=== PATIENT | female | born 1995 | race American Indian/Alaskan Native ===

== ENCOUNTER 2016-07-03 16:36 | Emergency (ER) | payer MEDICAID, OTHER ==
[2016-07-03 17:00] VITALS: BP 104/69; PULSE 84; RESP 18; TEMP 98.4; O2SAT 98
== END 2016-07-03 18:22 | disposition left against medical advice (07) ==
LOC: C.ER 16:36
DX: Z32.00 Encounter for pregnancy test, result unknown (principal); Z02.9 Encounter for administrative examinations, unspecified

== ENCOUNTER 2016-07-03 18:36 | Emergency (ER) | payer OTHER ==
[2016-07-03 18:51] VITALS: BMI 21.6
[2016-07-03 18:55] VITALS: BP 111/78; PULSE 78; RESP 18; O2SAT 100
--- NOTE | 2016-07-03 21:05 | C.PDOC ---
History Of Present Illness Patient is a 20 year old female who presents to the ER with a complaint of dizziness, lightheadedness and nausea for the past 4 months. Patient reports she hasn't had her menstrual period for 4 months and believes she is . Patient also notes when she coughs blood appear in her mucous at times. Patient denies fever, numbness, weakness, chest pain, and SOB. Time Seen by Provider: 07/03/16 20:27 Chief Complaint (Nursing): Abdominal Pain History Per: Patient History/Exam Limitations: no limitations Onset/Duration Of Symptoms: Days (4 months) Current Symptoms Are (Timing): Still Present Context: Other (Not known) Radiation Of Pain To:: None Quality Of Discomfort: Other (No pain) Associated Symptoms: Nausea. denies: Fever, Chest Pain, Other (Weakness, numbness, SOB) Exacerbating Factors: None Alleviating Factors: None Recent travel outside of the [place]: No Last Menstral Period: 4 months ago Past Medical History Reviewed: Historical Data, Nursing Documentation, Vital Signs Vital Signs: Last Vital Signs Temp 98 F 07/04/16 00:11 Pulse 78 07/03/16 18:51 Resp 18 07/03/16 18:51 BP 111/78 07/03/16 18:51 Pulse Ox 100 07/03/16 21:15 - Medical History PMH: No Chronic Diseases Surgical History: No Surg Hx Family History: States: Unknown Family Hx - Social History Hx Tobacco Use: No Hx Alcohol Use: No Hx Substance Use: No - Immunization History Hx Tetanus Toxoid Vaccination: No Hx Influenza Vaccination: No Hx Pneumococcal Vaccination: No Review Of Systems Constitutional: Positive for: Other (No night sweats). Negative for: Fever, Weakness, Weight loss Cardiovascular: Negative for: Chest Pain Respiratory: Positive for: Cough (Blood in mucous occasionally). Negative for: Shortness of Breath Gastrointestinal: Positive for: Nausea Neurological: Positive for: Dizziness, Other (Lightheadedness). Negative for: Weakness, Numbness Physical Exam - Physical Exam Appears: Well, Non-toxic Skin: Normal Color, Warm, Dry, No Rash Head: Atraumatic, Normacephalic Eye(s): bilateral: Normal Inspection, PERRL, EOMI Ear(s): Bilateral: Normal Oral Mucosa: Moist Tongue: Normal Appearing Throat: Normal, No Erythema, No Exudate Neck: Normal, Supple Chest: Symmetrical, No Tenderness Cardiovascular: Rhythm Regular, No Friction Rub, No Murmur Respiratory: Normal Breath Sounds, No Rales, No Rhonchi, No Wheezing Gastrointestinal/Abdominal: Soft, No Tenderness Extremity: Normal ROM, No Swelling Neurological/Psych: Oriented x3, Normal Speech, Normal Cognition, Normal Motor Gait: Steady ED Course And Treatment - Laboratory Results Result Diagrams: 07/03/16 20:59 07/03/16 20:59 O2 Sat by Pulse Oximetry: 100 (Room air) Pulse Ox Interpretation: Normal Progress Note: Blood work and urinalysis ordered. Medical Decision Making Medical Decision Making: Lab results were discussed with the patient. Patient eloped prior to the CXR. Disposition - Disposition Disposition: ELOPEMENT - ER ONLY Disposition Time: 22:30 Condition: GOOD - POA Present On Arrival: None - Clinical Impression Clinical Impression: Nausea, URI (upper respiratory infection) - Scribe Statement The provider has reviewed the documentation as recorded by the Scribe Edgar Rojas All medical record entries made by the Scribe were at my direction and personally dictated by me. I have reviewed the chart and agree that the record accurately reflects my personal performance of the history, physical exam, medical decision making, and the department course for this patient. I have also personally directed, reviewed, and agree with the discharge instructions and disposition.
[2016-07-03 21:08] LABS: BASO % 0.4 % (0.0-2.0); EOS % 1.4 % (0.0-4.0); HEMATOCRIT 41.4 % (34.0-47.0); LYMPH # 1.4 K/uL (1.0-4.3); LYMPH % 39.8 % (20.0-40.0); MEAN CELL VOLUME 81.1 fL (81.0-99.0); MEAN CORPUSCULAR HEMOGLOBIN 26.1 pg (27.0-31.0); MEAN CORPUSCULAR HGB CONC 32.2 g/dL (33.0-37.0); MEAN PLATELET VOLUME 7.5 fL (7.2-11.7); MONO # 0.3 K/uL (0.0-0.8); MONO % 8.7 % (0.0-10.0); NRBC % 0.1 % (0.0-2.0); RED CELL DISTRIBUTION WIDTH 13.1 % (11.5-14.5); WHITE BLOOD COUNT 3.5 K/uL (4.8-10.8)
[2016-07-03 21:14] LABS: CHLORIDE 97 mmol/L (98-107); POTASSIUM 3.5 mmol/L (3.6-5.2); SODIUM 134 mmol/L (132-148)
[2016-07-03 21:16] LABS: RBC URINE < 1 /hpf (0-3); URINE BILIRUBIN NEGATIVE (NEGATIVE); URINE BLOOD NEGATIVE (NEGATIVE); URINE COLOR Yellow (YELLOW); URINE GLUCOSE (UA) NORMAL (Normal); URINE KETONE NEGATIVE (NEGATIVE); URINE LEUKOCYTE ESTERASE NEG Leu/uL (Negative); URINE PROTEIN NEGATIVE (NEGATIVE); URINE UROBILINOGEN NORMAL mg/dL (0.2-1.0); WBC URINE < 1 /hpf (0-5)
[2016-07-03 21:17] LABS: BLOOD UREA NITROGEN 12 mg/dL (7-17); CARBON DIOXIDE 29 mmol/L (22-30); GFR AFRICAN-AMERICAN > 60; GLUCOSE,RANDOM 77 mg/dL (65-105)
[2016-07-04 00:12] VITALS: TEMP 98
== END 2016-07-04 00:10 | disposition left against medical advice (07) ==
LOC: C.ER 18:36
DX: J06.9 Acute upper respiratory infection, unspecified (principal); R11.0 Nausea

== ENCOUNTER 2017-10-01 17:43 | Emergency (ER) | payer SELFPAY ==
[2017-10-01 17:43] VITALS: BMI 21.6
[2017-10-01 18:27] VITALS: RESP 18
[2017-10-01] MEDS ORDERED: Sodium Chloride 0.9% 1,000 ML IV ONE (19:11)
--- NOTE | 2017-10-01 19:11 | C.PDOC ---
History Of Present Illness 22 year old female presents to the emergency department with complaints of abdominal pain which began four days ago. Patient reports a decreased appetite, and states that she experiences nausea and vomiting after eating. She denies fever or chills. Time Seen by Provider: 10/01/17 19:11 Chief Complaint (Nursing): Abdominal Pain History Per: Patient History/Exam Limitations: no limitations Onset/Duration Of Symptoms: Days (4), Waxing/Waning Context: Food Severity: Moderate Pain Scale Rating Of: 4 Location Of Pain/Discomfort: Other (Abdomen) Quality Of Discomfort: "Pain" Associated Symptoms: Nausea, Vomiting, Loss Of Appetite. denies: Fever, Chills Exacerbating Factors: Food Past Medical History Reviewed: Historical Data, Nursing Documentation, Vital Signs Vital Signs: Last Vital Signs Temp 98.5 F 10/01/17 18:22 Pulse 80 10/01/17 18:22 Resp 18 10/01/17 18:22 BP 113/89 10/01/17 18:22 Pulse Ox 100 10/01/17 19:46 - Medical History PMH: No Chronic Diseases Surgical History: No Surg Hx Family History: States: No Known Family Hx - Social History Hx Tobacco Use: No Hx Alcohol Use: No Hx Substance Use: No - Immunization History Hx Tetanus Toxoid Vaccination: No Hx Influenza Vaccination: No Hx Pneumococcal Vaccination: No Review Of Systems Constitutional: Negative for: Fever, Chills Gastrointestinal: Positive for: Nausea, Vomiting, Abdominal Pain, Other ( decreased appetite) Physical Exam - Physical Exam Appears: Non-toxic, No Acute Distress Skin: Warm, Dry Head: Normacephalic Eye(s): bilateral: Normal Inspection Oral Mucosa: Moist Neck: Trachea Midline, Supple Chest: Symmetrical Cardiovascular: Rhythm Regular, No Murmur Respiratory: Normal Breath Sounds, No Rales, No Rhonchi, No Wheezing Gastrointestinal/Abdominal: Soft, Tenderness (mild, mid-epigastric tenderness), No Distention, No Guarding, No Rebound Extremity: Bilateral: Normal Color And Temperature Pulses: Left Dorsalis Pedis: Normal, Right Dorsalis Pedis: Normal Neurological/Psych: Oriented x3 ED Course And Treatment - Laboratory Results Result Diagrams: 10/01/17 19:32 10/01/17 19:32 O2 Sat by Pulse Oximetry: 100 (RA) Pulse Ox Interpretation: Normal Progress Note: Plan: CMP. Lipase. CBC. PTT. Prothrombin Time. Pepcid 20mg IVP. NaCl IV Fluids. Zofran 4mg IVP. Urinalysis Reevaluation Time: 22:23 Reassessment Condition: Improved Disposition Counseled Patient/Family Regarding: Studies Performed, Diagnosis, Need For Followup, Rx Given - Disposition Referrals: [facility] [Outside] [facility] [Outside] Disposition: HOME/ ROUTINE Disposition Time: 19:11 Condition: FAIR Additional Instructions: Please return if symptoms recur Prescriptions: Polyethylene Glycol 3350 [Miralax] 17 gm PO DAILY #270 ml Instructions: Acute Abdomen (Belly Pain), Adult (DC), Constipation, Adult (DC) Forms: [employer] (Greenlandic) - Clinical Impression Clinical Impression: Abdominal pain, Constipation - Scribe Statement The provider has reviewed the documentation as recorded by the Scribe (Anuel Cruz) Provider Attestation: All medical record entries made by the Scribe were at my direction and personally dictated by me. I have reviewed the chart and agree that the record accurately reflects my personal performance of the history, physical exam, medical decision making, and the department course for this patient. I have also personally directed, reviewed, and agree with the discharge instructions and disposition.
[2017-10-01] MEDS ORDERED: Sodium Chloride 0.9% 1,000 ML ONE (19:22)
[2017-10-01 19:38] LABS: BASO % 0.3 % (0.0-2.0); EOS % 0.8 % (0.0-4.0); HEMOGLOBIN 12.9 g/dL (11.0-16.0); LYMPH # 1.5 K/uL (1.0-4.3); LYMPH % 26.3 % (20.0-40.0); MEAN CELL VOLUME 80.7 fL (81.0-99.0); MEAN CORPUSCULAR HEMOGLOBIN 27.2 pg (27.0-31.0); MEAN CORPUSCULAR HGB CONC 33.7 g/dL (33.0-37.0); MEAN PLATELET VOLUME 7.2 fL (7.2-11.7); MONO # 0.7 K/uL (0.0-0.8); MONO % 12.7 % (0.0-10.0); NEUT # 3.3 K/uL (1.8-7.0); NEUT % 59.9 % (50.0-75.0); NRBC % 0.1 % (0.0-2.0); RBC 4.75 Mil/uL (3.80-5.20); RED CELL DISTRIBUTION WIDTH 13.8 % (11.5-14.5); WHITE BLOOD COUNT 5.6 K/uL (4.8-10.8)
[2017-10-01 19:42] LABS: SQUAMOUS EPITHIAL 22 /hpf (0-5); URINE BILIRUBIN NEGATIVE (NEGATIVE); URINE BLOOD NEGATIVE (NEGATIVE); URINE CLARITY Hazy (Clear); URINE COLOR Yellow (YELLOW); URINE GLUCOSE (UA) NORMAL (Normal); URINE LEUKOCYTE ESTERASE TRACE Leu/uL (Negative); URINE PROTEIN NEGATIVE (NEGATIVE)
[2017-10-01 19:47] LABS: INR 1.1; PROTHROMBIN TIME 12.4 SECONDS (9.7-12.2)
[2017-10-01 19:58] LABS: ALB/GLOB RATIO 1.3 (1.0-2.1); ALBUMIN 4.2 g/dL (3.5-5.0); ALT/SGPT 22 U/L (9-52); AST/SGOT 17 U/L (14-36); BLOOD UREA NITROGEN 13 mg/dL (7-17); GFR AFRICAN-AMERICAN > 60; GFR NON-AFRICAN AMERICAN > 60; LIPASE 78 U/L (23-300)
[2017-10-01] MEDS ORDERED: Iodixanol 320 MG/ML 100 ML BOTTLE IV ONE (20:55)
[2017-10-01 22:45] VITALS: BP 96/60; PULSE 88; TEMP 98.7; O2SAT 99
--- NOTE | 2017-10-02 16:55 | CT ---
Date of service: 10/01/2017 PROCEDURE: CT Abdomen and Pelvis with contrast HISTORY: ruq abd pain COMPARISON: None. TECHNIQUE: Contrast dose: 100 mL Visipaque 320. Axial and reformatted coronal and sagittal CT images of the abdomen and pelvis were obtained after IV contrast administration. Radiation dose: Total exam DLP = 295.19 mGy-cm. This CT exam was performed using one or more of the following dose reduction techniques: Automated exposure control, adjustment of the mA and/or kV according to patient size, and/or use of iterative reconstruction technique. FINDINGS: LOWER THORAX: Unremarkable. LIVER: Unremarkable. No gross lesion or ductal dilatation. GALLBLADDER AND BILE DUCTS: Unremarkable. PANCREAS: Unremarkable. No gross lesion or ductal dilatation. SPLEEN: Unremarkable. ADRENALS: Unremarkable. No mass. KIDNEYS AND URETERS: Unremarkable. No hydronephrosis. No solid mass. VASCULATURE: Unremarkable. No aortic aneurysm. BOWEL: Unremarkable. No obstruction. No gross mural thickening. Mild constipation is noted. APPENDIX: Normal appendix. PERITONEUM: Unremarkable. No free fluid. No free air. LYMPH NODES: Unremarkable. No enlarged lymph nodes. BLADDER: Unremarkable. REPRODUCTIVE: There is 4.9 x 3.4 centimeter cystic lesion to the left of the uterus likely represent left adnexal cyst. If indicated further assessment by ultrasound may be obtained. The uterus is grossly unremarkable. BONES: No acute fracture. OTHER FINDINGS: None. IMPRESSION: No evidence of cholecystitis pancreatitis or appendicitis. Mild constipation. 5 centimeters cyst at the left adnexa. If indicated further assessment by ultrasound may be obtained. Preliminary report was submitted by [facility].
== END 2017-10-01 22:47 | disposition home or self-care (01) ==
LOC: C.ER 17:43
DX: R10.9 Unspecified abdominal pain (principal); K59.00 Constipation, unspecified
CPT/HCPCS: 74177; 80053; 81001; 83690; 85025; 85610; 85730; 96361; 96374; 96375; 99285; J2405; J7030; Q9967

== ENCOUNTER 2017-11-07 13:24 | Emergency (ER) | payer MEDICAID ==
[2017-11-07 13:24] VITALS: BMI 21.6
[2017-11-07 13:36] VITALS: BP 100/68; PULSE 81; TEMP 98.5; O2SAT 98
[2017-11-07] MEDS ORDERED: Neomycin/Polymyxin/Hydrocort Otic Soln BOTTLE AU STA (13:53)
--- NOTE | 2017-11-07 15:30 | C.PDOC ---
History Of Present Illness 22 y/o female presents to ED for evaluation of bilateral earaches for the past 2 weeks. Pt is also requesting her earlobes to be sutured. Notes she had infection to both earlobes from her earring piercing two weeks ago which has now resolved. Denies ear discharge, swelling, fever, or any other complaints. Time Seen by Provider: 11/07/17 13:38 Chief Complaint (Nursing): ENT Problem History Per: Patient History/Exam Limitations: None Onset/Duration Of Symptoms: Days Current Symptoms Are (Timing): Still Present Quality (Ear): denies: Redness, Swelling, Discharge, Foreign Body Past Medical History Reviewed: Historical Data, Nursing Documentation, Vital Signs Vital Signs: Last Vital Signs Temp 98.5 F 11/07/17 13:33 Pulse 81 11/07/17 13:33 Resp 20 11/07/17 15:49 BP 100/68 11/07/17 13:33 Pulse Ox 98 11/07/17 16:14 Family History: States: Unknown Family Hx - Social History Hx Tobacco Use: No Hx Alcohol Use: No Hx Substance Use: No - Immunization History Hx Tetanus Toxoid Vaccination: No Hx Influenza Vaccination: No Hx Pneumococcal Vaccination: No Review Of Systems Except As Marked, All Systems Reviewed And Found Negative. Constitutional: Negative for: Fever, Chills ENT: Positive for: Ear Pain (bilateral). Negative for: Ear Discharge, Nose Discharge, Nose Congestion, Throat Pain Respiratory: Negative for: Cough Physical Exam - Physical Exam Appears: Non-toxic, No Acute Distress Skin: Normal Color, Warm, Dry Head: Atraumatic, Normacephalic Eye(s): bilateral: Normal Inspection, EOMI Ear(s): Bilateral: Other (enlarged bilateral earlobes, no drainage, redness, or swelling; no signs of infection. Irritation and erythema to ear canal. Normal TM. No Mastoid tenderness. ) Oral Mucosa: Moist, No Drooling Throat: Normal, No Erythema, No Exudate Neck: Normal ROM, Supple Lymphatic: No Adenopathy Extremity: Normal ROM Neurological/Psych: Oriented x3, Normal Speech ED Course And Treatment O2 Sat by Pulse Oximetry: 98 (on RA) Pulse Ox Interpretation: Normal Progress Note: Pt was treated with Cortisporin. Patient is being discharged home with instructions to follow up with PMD, ENT, and plastic surgery in 1-2 days for further evaluation. Disposition - Disposition Referrals: Zach Capellan MD [Staff Provider] - Juan Ramon Laurent MD [Staff Provider] - Disposition: HOME/ ROUTINE Disposition Time: 15:24 Condition: STABLE Additional Instructions: Follow up with PMD, ENT and Plastic surgery within 1-2 days. Return to ED if feel worse. Prescriptions: Neomycin/Polymyxin/Hydrocortis [Cortisporin Otic Susp] 3 drop TOP TID #1 bottle Instructions: Outer Ear Infection (DC) Forms: [employer] ([place]) - Clinical Impression Clinical Impression: Otitis externa, Complication of piercing of both ears - PA / BUSINESS RELATIONS MANAGER / Resident Statement MD/DO has reviewed & agrees with the documentation as recorded. - Scribe Statement The provider has reviewed the documentation as recorded by the Scribe KP All medical record entries made by the Scribe were at my direction and personally dictated by me. I have reviewed the chart and agree that the record accurately reflects my personal performance of the history, physical exam, medical decision making, and the department course for this patient. I have also personally directed, reviewed, and agree with the discharge instructions and disposition.
[2017-11-07 15:50] VITALS: RESP 20
== END 2017-11-07 15:49 | disposition home or self-care (01) ==
LOC: C.ER 13:24
DX: H60.93 Unspecified otitis externa, bilateral (principal); H95.89 Other postprocedural complications and disorders of the ear and mastoid process, not elsewhere classified